=== PATIENT | female | born 1975 | race Caucasian/White ===

== ENCOUNTER 2018-11-16 08:09 | Emergency (ER) | payer OTHER ==
[~2018-11-16] VITALS: Ht 160 cm; Wt 77.1 kg
[~2018-11-16 08:09] MED LIST: CLARINEX5 MG/TAB; FLOVENT DI50 MCG/DIS; MUCINEX D1 TAB.SR .; TENCON CAPSULE1 CAP; VERTIN-3232 MG
[2018-11-16] MEDS ORDERED: LIPITOR20 MG (08:25)
[2018-11-16] MEDS ORDERED: ZYRTEC10 M3 (08:26)
== END 2018-11-16 11:07 | disposition home or self-care (01) ==
LOC: ER 08:09
DX: J06.9 Acute upper respiratory infection, unspecified (principal)

== ENCOUNTER 2021-01-10 10:16 | Emergency (ER) | payer OTHER ==
[~2021-01-10] VITALS: Ht 160 cm; Wt 79.4 kg
[~2021-01-10 10:16] MED LIST changes: +LIPITOR20 MG; +ZYRTEC10 M3
[2021-01-10] MEDS ORDERED: DICLOFENAC POTA50 MG PO (12:08)
[2021-01-10] MEDS ORDERED: BACTRIM DS TAB1 EACH PO (12:08)
[2021-01-10] MEDS ORDERED: ORPHENADRINE C100 MG PO (12:08)
[2021-01-10] MEDS ORDERED: MUPIROCIN15 GM TOP (12:08)
== END 2021-01-10 12:43 ==
LOC: ER 10:16
DX: L03.211 Cellulitis of face (principal); R60.9 Edema, unspecified

== ENCOUNTER 2021-08-21 12:14 | Emergency (ER) | payer OTHER ==
[~2021-08-21] VITALS: Ht 160 cm; Wt 64.0 kg
[~2021-08-21 12:14] MED LIST changes: +BACTRIM DS TAB1 EACH PO; +DICLOFENAC POTA50 MG PO; +MUPIROCIN15 GM TOP; +ORPHENADRINE C100 MG PO
[2021-08-21] MEDS ORDERED: ORPHENADRINE C100 MG PO (16:49)
[2021-08-21] MEDS ORDERED: DICLOFENAC POTA50 MG PO (16:49)
== END 2021-08-21 17:22 ==
LOC: ER 12:14
DX: M54.2 Cervicalgia (principal)